=== PATIENT | female | born 1980 | race Caucasian/White ===

== ENCOUNTER → 2018-03-15 | Outpatient (CLI) | payer BC ==
--- NOTE | 2018-03-16 07:37 | WWHP ---
[facility] - HISTORY AND PHYSICAL DATE OF DICTATION: 03/15/2018. CHIEF COMPLAINT: The patient is here for her routine gynecologic exam. HPI: This is a 37-year-old G4, P3 with an LMP of 02/28/2018. The patient is status post tubal ligation. The patient states her menses have been less regular than in the past. Her menses use to be regular every month, lasting 3 days with regular flow. She states they continued to be 3 days long with regular flow, but the cycle lengths can vary between 22 and 29 days. The patient was started on oral contraception to see if this would regulate her cycles. She was initially started on a low-dose control pill, which did not seem to help. This was changed to Ortho Tri-Cyclen, which also did not seem to make the menses more regular. She developed some small red skin spots while on control pills, therefore, she discontinued them about 2 months ago. She was on the control pills for about 9 months. Her tubal sterilization was in 2012. PAST MEDICAL HISTORY: Mild asthma and ADHD. MEDICATIONS: Albuterol inhaler p.r.n., Vyvanse 50 mg daily, Adderall generic 10 mg daily. ALLERGIES: ALLERGIES TO PENICILLIN, WHICH CAUSED HIVES. PAST SURGICAL HISTORY: section x3 and she did have a tubal ligation with her 3rd , laparoscopy 2004. PAST OB HISTORY: 3 sections and 1 spontaneous . PAST RECRUITER SPECIALIST HISTORY: She was diagnosed with endometriosis by laparoscopy in 2004. She has no history of STD's. SOCIAL HISTORY: She denies tobacco and drug use and has about 4 alcohol-containing drinks per week. She has been since 2005. 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 FAMILY HISTORY: Father suddenly at age 68 with a suspected TX. Mother has arthritis. She denies family history of cancer of the breast, uterus, ovaries or colon. REVIEW OF SYSTEMS: A couple of years ago, she did lose 20 pounds with diet and exercise, but has gained much of that back. Her weight has been fairly stable over the last year. She denies respiratory, cardiac or GI problems. PHYSICAL EXAM: Blood pressure 133/78, height 5 feet 4 inches, weight 163 pounds. BMI 28. Temperature 96.9, pulse 88. This is a well-developed, well-nourished, white female, who is alert and oriented x3, in no acute distress. HEENT: Within normal limits. NECK: Supple without mass or thyromegaly. Chest and LUNGS: Clear to auscultation. HEART: Regular rate and rhythm. Breasts are without mass or discharge. Axillary exam is negative for adenopathy. Back negative for CVA tenderness. ABDOMEN: Soft, nontender, without palpable masses. Pelvic exam: Normal external genitalia. Cervix is somewhat anterior in the vagina but appears normal. There is no unusual discharge. There is no evidence of prolapse. The uterus is mid to anterior, nongravid size and nontender. There are no palpable adnexal masses or tenderness. Rectal exam is negative for mass or tenderness. Extremities nontender. IMPRESSION: 1. A 37-year-old female who is status post tubal ligation with normal gynecologic exam. 2. Mild menstrual irregularity with varying cycle length between 22 and 29 days. PLAN: 1. Pap smear was performed. 2. Self breast awareness was discussed. 3. We have had a long discussion regarding her mild menstrual irregularity. Since she is not in need of control, I think a trial off of control pills is what I recommend. She will keep a menstrual calendar. She will call if she is having significant problems with her menses. We can consider other options including different control pill, endometrial ablation or Depo-Provera injections. 4. Thyroid screening will be done with the TSH blood test. An order slip will be sent to the patient for this. 5. She will return in 1 year or p.r.n. MMPARRIS / KEVENN: [id number] /
== END | disposition home or self-care (01) ==
LOC: WWCWWP 15:57
PROVIDERS: ATTEND Obstetrics & Gynecology
DX: Z00.00 Encounter for general adult medical examination without abnormal findings (principal); N92.6 Irregular menstruation, unspecified
CPT/HCPCS: 36415; 84443

== ENCOUNTER → 2019-09-22 | Outpatient (CLI) | payer BC ==
--- NOTE | 2019-09-26 09:47 | MM ---
Reason for exam: screening (asymptomatic). Baseline mammogram. Physical Findings: Nurse did not find any significant physical abnormalities on exam. MG 3D Screening Mammo W/Cad Bilateral CC and MLO view(s) were taken. The breast tissue is heterogeneously dense. This may lower the sensitivity of mammography. No suspicious abnormality. Left intramammary lymph node with a fatty notch on MLO. These results were verbally communicated with the patient and result sheet given to the patient on 09/22/19. ASSESSMENT: Negative, BI-RAD 1 RECOMMENDATION: Routine screening mammogram of both breasts in 1 year.
== END | disposition home or self-care (01) ==
LOC: RADMAMWWP 09:32
PROVIDERS: ATTEND Family Medicine
DX: Z12.31 Encounter for screening mammogram for malignant neoplasm of breast (principal)
CPT/HCPCS: 77063; 77067